=== PATIENT | female | born 1965 | race Caucasian/White ===

== ENCOUNTER 2018-02-13 19:22 | Inpatient (IN) ==
[2018-02-13] MEDS ORDERED: Sod Chloride 0.9% Inj 1,000 ML IV.SIG ONE (19:30)
--- NOTE | 2018-02-13 19:48 | ED ---
HPI General Chief complaint: Overdose Stated complaint: Poss Overdose Time Seen by Provider: 02/13/18 19:30 Source: family Limitations: altered mental status History of Present Illness HPI narrative: The patient is a 52 year old female who presents to the [facility] emergency department with a history of being brought in by her by private vehicle to triage with a reported history of taking 5-7 Seroquel approximately 30-45 minutes prior to arrival. The patient is drowsy on arrival and unable to provide any history as she quickly falls asleep in between questions. The Seroquel was reportedly 300 mg tablets. Unfortunately, as the patient arrives for evaluation the patient's also required an evaluation in the emergency department, therefore the patient's history is limited and will be reviewed in the electronic medical record. Related Data Home Medications Medication Instructions Recorded Confirmed clonazepam [Klonopin] 1 mg PO TID 11/06/17 02/13/18 quetiapine [Seroquel] 300 mg PO HS 11/06/17 02/13/18 venlafaxine [Effexor XR] 150 mg PO DAILY 11/06/17 02/13/18 Previous Rx's Medication Instructions Recorded baclofen 10 mg PO TID #21 tab 11/18/17 ibuprofen 800 mg PO Q6-8H PRN #30 tab 11/18/17 Allergies Allergy/AdvReac Type Severity Reaction Status Date / Time amoxicillin AdvReac Severe Nausea/Vomi Unverified 09/22/16 12:41 ting cefuroxime AdvReac Severe Nausea/Vomi Unverified 09/22/16 12:41 ting clavulanic acid AdvReac Severe Nausea/Vomi Unverified 09/22/16 12:41 ting Review of Systems ROS Unobtainable ROS Unobtainable: unobtainable due to mental status PMFSH Medical History Medical History Asthma (Acute) Bipolar 1 disorder (Acute) COPD (chronic obstructive pulmonary disease) (Acute) Sleep apnea (Acute) Social History Social History Substance History: No History of Abuse Second Hand Smoke Exposure: Yes Smoking Status: Current every day smoker Tobacco Type: Cigarettes How Often Do You Have a Drink Containing Alcohol: Unable to Obtain Exam Const General: other (The patient is snoring on my arrival to the room. The patient will briefly open her eyes when stimulated, however she quickly falls back asleep prior to answering questions.) [facility] Head: normocephalic and atraumatic Nose: no nasal discharge and no epistaxis Mouth: other (Tacky mucous membranes) Throat: posterior oropharynx normal and uvula midline Eyes Sclera: normal sclerae Pupils: PERRL and other (Pupils are dilated at 5 mm and reactive to light bilaterally) Neck Neck: no meningeal signs, trachea midline and no JVD Resp Effort & Inspection: no use of accessory muscles Auscultation: clear to auscultation bilaterally Cardio Rate: tachycardic (Sinus tachycardia in the 1 teens, no pulse deficits to the extremities on simultaneous auscultation and palpation of her radial artery.) Rhythm: regular rhythm Heart Sounds: no murmurs GI Inspection: non-distended Palpation: soft, no hepatosplenomegaly, no guarding, not rigid and nontender Auscultation: normal bowel sounds Skin General: dry skin (warm) Neuro General: other (Drowsy on examination. She is moving all extremities equally with 5/5 strength. Patient is otherwise uncooperative with formal neurologic testing as she quickly falls asleep when she is not being stimulated) Motor: no movement abnormalities noted Extrem General: normal to inspection (2+ pulses in all 4 extremities.), no calf tenderness, no clubbing, no cyanosis and no edema Procedures Intubation Time Out Performed: Yes Sedative: etomidate Mg Given: 20 Paralytic: succinylcholine Mg Given: 100 Laryngoscope: Shemar Assist Device Used: Bougie Tube Placement Confirmation: visualized tube passing through cords, equal breath sounds bilaterally, no breath sounds over epigastrium and confirmation by capnometry Intubation Complications: difficult intubation Additional Comments: Initially a Shemar blade was used for laryngoscopy. There was a poor view with only the patient's epiglottis able to be visualized in spite of repositioning the patient. After this, further visualization was attempted with video laryngoscopy. The view continued to be poor. A bougie was used for placement of the endotracheal tube, however the endotracheal tube passed into the esophagus. This was quickly removed. The patient's O2 saturations were maintained throughout the process of attempted intubation and the patient was again bagged up to an O2 saturation of 98%. A third attempt was made with the Shemar blade and the patient was able to be intubated with a 7-1/2 endotracheal tube instead of an 8. Intubation was confirmed with capnography and auscultation. Course Initial Documented Vital Signs Temperature 98.7 F 02/13/18 19:33 Pulse Rate 108 H 02/13/18 19:33 Respiratory Rate 15 02/13/18 19:33 Blood Pressure 127/70 02/13/18 19:33 Pulse Oximetry 94 L 02/13/18 19:33 Last Documented Vital Signs Temperature 98.7 F 02/13/18 19:33 Pulse Rate 68 02/14/18 04:00 Respiratory Rate 16 02/14/18 04:00 Blood Pressure 126/77 02/14/18 04:00 Pulse Oximetry 99 02/14/18 04:00 Critical Care Time Critical Care Time: Yes Total Critical Care Time: 40 Attestation: Aggregate critical care time was 40 minutes. Time to perform other separately billable procedures was not included in the critical care time. My time did not include minutes spent treating any other patients simultaneously or on activities that did not directly contribute to the patient's treatment. The services I provided to this patient were to treat and/or prevent clinically significant deterioration that could result in: respiratory failure, versus cardiac dysrhythmia, versus hypoxic brain injury I provided critical care services requiring my management, as noted below: Chart data review, documentation time, medication orders and management, vital sign assessments/reviewing monitor data, ordering and reviewing lab tests, ordering and interpreting/reviewing x-rays and diagnostic studies, care of the patient and discussion of the patient with the admitting physicians. Medical Decision Making MDM Narrative Medical decision making narrative: During the course of the patient's emergency department visit, the patient's history, examination, and differential diagnosis were reviewed with the patient. The patient was placed on a school lunch monitor with oximetry and frequent blood pressure monitoring. The patient had IV access obtained and blood work sent for analysis. A diagnostic evaluation was started regarding this patient's reported overdose of Seroquel. Poison control will be contacted. The patient was initially provided normal saline 1 L IV fluid bolus. The patient came back from CT, the patient was noted to be more somnolent, O2 saturation would drop intermittently on the nasal cannula O2 as the patient is mouth breathing. A nasopharyngeal airway was placed and an ABG was done in preparation for intubation. The patient's diagnostic studies are remarkable for a CBC that is within normal limits, PT PTT within normal limits, chemistry is remarkable for sodium of 135, GFR of 68, glucose 127, AST 74, ALT 60, troponin I is less than 0.02, ammonia level is less than 10, lipase 152. An ABG revealed an O2 saturation of 89%, pH 7.29, PCO2 53, PO2 116 on 8 L nasal cannula O2, carboxyhemoglobin is 8.8, bicarb is 25. Urinalysis shows no acute abnormality. Urine drug screen is positive for benzodiazepines, salicylate is 2.2, acetaminophen less than 2, alcohol level less than 3. The patient was intubated and a post intubation chest x-ray revealed the endotracheal tube and NG tube in place, lungs are clear, prominent cardia cardiomediastinal silhouette which may be related to low lung volumes. CT scan of the brain shows aneurysm coils of the left side of the [place], resulting streak artifact, no acute intracranial abnormality. The patient's case including history, pertinent physical examination findings, and laboratory studies were discussed with Dr. Strauss, the ict sales assistant. It was agreed that the patient would be admitted to the ict sales assistant's service. Medical Screen Exam Complete: Yes Emergency Medical Condition: Yes Differential Diagnosis Differential Diagnosis: Intentional versus unintentional overdose, versus hepatic encephalopathy, versus intracranial abnormality Medical Records Medical records reviewed: Yes I reviewed the patient's medical records. Lab Data Lab results reviewed: Yes I reviewed the patient's lab results. Result diagrams: 02/13/18 19:50 02/13/18 19:50 POC Results POC Urine Results Negative Lab Results 02/13/18 02/13/18 02/13/18 Range/Units 19:50 19:50 19:50 WBC 9.0 (4.0-11.0) th/mm3 RBC 4.58 (4.00-5.30) mil/mm3 Hgb 13.8 (11.6-15.3) gm/dL Hct 41.4 (35.0-46.0) % MCV 90.4 (80.0-100.0) fL MCH 30.3 (27.0-34.0) pg MCHC 33.5 (32.0-36.0) % RDW 14.9 (11.6-17.2) % Plt Count 177 (150-450) th/mm3 MPV 9.0 (7.0-11.0) fL Neut % (Auto) 66.4 (16.0-70.0) % Lymph % (Auto) 27.1 (9.0-44.0) % [place] % (Auto) 4.1 (0.0-8.0) % Eos % (Auto) 2.0 (0.0-4.0) % Baso % (Auto) 0.4 (0.0-2.0) % Neut # (Auto) 6.0 (1.8-7.7) th/mm3 Lymph # (Auto) 2.5 (1.0-4.8) th/mm3 [place] # (Auto) 0.4 (0.0-0.9) th/mm3 Eos # (Auto) 0.2 (0.0-0.4) th/mm3 Baso # (Auto) 0.0 (0.0-0.2) th/mm3 WBC Differential . Differential Comment Auto diff final PT 10.5 (9.8-11.6) sec INR 1.0 Ratio APTT 28.1 (23.4-31.7) sec Puncture Site Patient Temperature O2 Saturation (90-100) % ABG pH (7.380-7.420) ABG pCO2 (38-42) mmHg ABG pO2 (61-120) mmHg ABG HCO3 (22-26) mmol/L ABG O2 Content (12.0-20.0) Vol % ABG Base Excess (-2-2) mmol/L ABG Methemoglobin (0-2) % Hector Test Hemoglobin (12.0-16.0) G/DL Carboxyhemoglobin (0-4) % O2 Delivery Device Liter Flow L/M Vent Setting Inspired O2 % Critical Value Sodium 135 L (136-145) meq/L Potassium 3.9 (3.5-5.1) meq/L Chloride 103 (98-107) meq/L Carbon Dioxide 24.2 (21.0-32.0) meq/L Anion Gap 8 (5-15) meq/L BUN 8 (7-18) mg/dL Creatinine 0.88 (0.50-1.00) mg/dL Estimated GFR 68 L (>89) mL/min Random Glucose 127 H (74-106) mg/dL Osmolality 285 (275-295) mosm/kg Calcium 8.8 (8.5-10.1) mg/dL Magnesium 2.1 (1.5-2.5) mg/dL Total Bilirubin 0.4 (0.2-1.0) mg/dL AST 74 H (15-37) U/L ALT 60 H (10-53) U/L Alkaline Phosphatase 111 (45-117) U/L Ammonia (11-32) mcmol/L Troponin I Less than 0.02 L (0.02-0.05) ng/mL Total Protein 8.0 (6.4-8.2) g/dL Albumin 3.8 (3.4-5.0) g/dL Lipase 152 (73-393) U/L Urine Color (Yellw/Straw) Urine Clarity (Clear) Urine pH (5.0-8.5) Ur Specific [place] (1.002-1.035) Urine Protein (Neg-Trace) mg/dL Urine Glucose (UA) (Negative) mg/dL Urine Ketones (Negative) mg/dL Urine Occult Blood (Negative) Urine Nitrate (Negative) Urine Bilirubin (Negative) Urine Urobilinogen (Less than 2) mg/dL Ur Leukocyte Esterase (Negative) Urine RBC (0-3) /hpf Urine WBC (0-5) /hpf Urine Bacteria (None) /hpf Hyaline Casts (0-3) /lpf Urine Mucus (Occasional) /lpf Micro UA Comment Ur Microscopic Review Urine Culture Comments Urine Osmolality (300-1300) mosm/kg Nasal Screen MRSA (PCR) (Negative) Salicylates (2.8-20.0) mg/dL Urine Opiates Screen (Neg) Acetaminophen Less than 2.0 L (10.0-30.0) mcg/mL Ur Barbiturates Screen (Neg) Ur Amphetamines Screen (Neg) U Benzodiazepines Scrn (Neg) Urine Cocaine Screen (Neg) U Cannabinoids Screen (Neg) Serum Alcohol Less than 3 (0-5) mg/dL 02/13/18 02/13/18 02/13/18 Range/Units 19:50 19:50 20:05 WBC (4.0-11.0) th/mm3 RBC (4.00-5.30) mil/mm3 Hgb (11.6-15.3) gm/dL Hct (35.0-46.0) % MCV (80.0-100.0) fL MCH (27.0-34.0) pg MCHC (32.0-36.0) % RDW (11.6-17.2) % Plt Count (150-450) th/mm3 MPV (7.0-11.0) fL Neut % (Auto) (16.0-70.0) % Lymph % (Auto) (9.0-44.0) % [place] % (Auto) (0.0-8.0) % Eos % (Auto) (0.0-4.0) % Baso % (Auto) (0.0-2.0) % Neut # (Auto) (1.8-7.7) th/mm3 Lymph # (Auto) (1.0-4.8) th/mm3 [place] # (Auto) (0.0-0.9) th/mm3 Eos # (Auto) (0.0-0.4) th/mm3 Baso # (Auto) (0.0-0.2) th/mm3 WBC Differential Differential Comment PT (9.8-11.6) sec INR Ratio APTT (23.4-31.7) sec Puncture Site Right radial Patient Temperature 98.6 O2 Saturation 89 L* (90-100) % ABG pH 7.29 L* (7.380-7.420) ABG pCO2 53 H* (38-42) mmHg ABG pO2 116 (61-120) mmHg ABG HCO3 25 (22-26) mmol/L ABG O2 Content 16.7 (12.0-20.0) Vol % ABG Base Excess -1.1 (-2-2) mmol/L ABG Methemoglobin 0.9 (0-2) % Hector Test Present Hemoglobin 13.2 (12.0-16.0) G/DL Carboxyhemoglobin 8.8 H* (0-4) % O2 Delivery Device Nasal cannula Liter Flow 8.00 L/M Vent Setting Inspired O2 % Critical Value Yes Sodium (136-145) meq/L Potassium (3.5-5.1) meq/L Chloride (98-107) meq/L Carbon Dioxide (21.0-32.0) meq/L Anion Gap (5-15) meq/L BUN (7-18) mg/dL Creatinine (0.50-1.00) mg/dL Estimated GFR (>89) mL/min Random Glucose (74-106) mg/dL Osmolality (275-295) mosm/kg Calcium (8.5-10.1) mg/dL Magnesium (1.5-2.5) mg/dL Total Bilirubin (0.2-1.0) mg/dL AST (15-37) U/L ALT (10-53) U/L Alkaline Phosphatase (45-117) U/L Ammonia Less than 10 L (11-32) mcmol/L Troponin I (0.02-0.05) ng/mL Total Protein (6.4-8.2) g/dL Albumin (3.4-5.0) g/dL Lipase (73-393) U/L Urine Color (Yellw/Straw) Urine Clarity (Clear) Urine pH (5.0-8.5) Ur Specific [place] (1.002-1.035) Urine Protein (Neg-Trace) mg/dL Urine Glucose (UA) (Negative) mg/dL Urine Ketones (Negative) mg/dL Urine Occult Blood (Negative) Urine Nitrate (Negative) Urine Bilirubin (Negative) Urine Urobilinogen (Less than 2) mg/dL Ur Leukocyte Esterase (Negative) Urine RBC (0-3) /hpf Urine WBC (0-5) /hpf Urine Bacteria (None) /hpf Hyaline Casts (0-3) /lpf Urine Mucus (Occasional) /lpf Micro UA Comment Ur Microscopic Review Urine Culture Comments Urine Osmolality (300-1300) mosm/kg Nasal Screen MRSA (PCR) (Negative) Salicylates 2.2 L (2.8-20.0) mg/dL Urine Opiates Screen (Neg) Acetaminophen (10.0-30.0) mcg/mL Ur Barbiturates Screen (Neg) Ur Amphetamines Screen (Neg) U Benzodiazepines Scrn (Neg) Urine Cocaine Screen (Neg) U Cannabinoids Screen (Neg) Serum Alcohol (0-5) mg/dL 02/13/18 02/13/18 02/13/18 Range/Units 22:00 22:00 22:00 WBC (4.0-11.0) th/mm3 RBC (4.00-5.30) mil/mm3 Hgb (11.6-15.3) gm/dL Hct (35.0-46.0) % MCV (80.0-100.0) fL MCH (27.0-34.0) pg MCHC (32.0-36.0) % RDW (11.6-17.2) % Plt Count (150-450) th/mm3 MPV (7.0-11.0) fL Neut % (Auto) (16.0-70.0) % Lymph % (Auto) (9.0-44.0) % [place] % (Auto) (0.0-8.0) % Eos % (Auto) (0.0-4.0) % Baso % (Auto) (0.0-2.0) % Neut # (Auto) (1.8-7.7) th/mm3 Lymph # (Auto) (1.0-4.8) th/mm3 [place] # (Auto) (0.0-0.9) th/mm3 Eos # (Auto) (0.0-0.4) th/mm3 Baso # (Auto) (0.0-0.2) th/mm3 WBC Differential Differential Comment PT (9.8-11.6) sec INR Ratio APTT (23.4-31.7) sec Puncture Site Patient Temperature O2 Saturation (90-100) % ABG pH (7.380-7.420) ABG pCO2 (38-42) mmHg ABG pO2 (61-120) mmHg ABG HCO3 (22-26) mmol/L ABG O2 Content (12.0-20.0) Vol % ABG Base Excess (-2-2) mmol/L ABG Methemoglobin (0-2) % Hector Test Hemoglobin (12.0-16.0) G/DL Carboxyhemoglobin (0-4) % O2 Delivery Device Liter Flow L/M Vent Setting Inspired O2 % Critical Value Sodium (136-145) meq/L Potassium (3.5-5.1) meq/L Chloride (98-107) meq/L Carbon Dioxide (21.0-32.0) meq/L Anion Gap (5-15) meq/L BUN (7-18) mg/dL Creatinine (0.50-1.00) mg/dL Estimated GFR (>89) mL/min Random Glucose (74-106) mg/dL Osmolality (275-295) mosm/kg Calcium (8.5-10.1) mg/dL Magnesium (1.5-2.5) mg/dL Total Bilirubin (0.2-1.0) mg/dL AST (15-37) U/L ALT (10-53) U/L Alkaline Phosphatase (45-117) U/L Ammonia (11-32) mcmol/L Troponin I (0.02-0.05) ng/mL Total Protein (6.4-8.2) g/dL Albumin (3.4-5.0) g/dL Lipase (73-393) U/L Urine Color Yellow (Yellw/Straw) Urine Clarity Clear (Clear) Urine pH 6.0 (5.0-8.5) Ur Specific [place] 1.010 (1.002-1.035) Urine Protein Negative (Neg-Trace) mg/dL Urine Glucose (UA) Negative (Negative) mg/dL Urine Ketones Negative (Negative) mg/dL Urine Occult Blood Negative (Negative) Urine Nitrate Negative (Negative) Urine Bilirubin Negative (Negative) Urine Urobilinogen Less than 2 (Less than 2) mg/dL Ur Leukocyte Esterase Negative (Negative) Urine RBC 1 (0-3) /hpf Urine WBC 1 (0-5) /hpf Urine Bacteria Rare H (None) /hpf Hyaline Casts 3 (0-3) /lpf Urine Mucus Few H (Occasional) /lpf Micro UA Comment Cath-culture ind Ur Microscopic Review Not Reportable Urine Culture Comments Cath-cult indicated Urine Osmolality 263 L (300-1300) mosm/kg Nasal Screen MRSA (PCR) (Negative) Salicylates (2.8-20.0) mg/dL Urine Opiates Screen Neg (Neg) Acetaminophen (10.0-30.0) mcg/mL Ur Barbiturates Screen Neg (Neg) Ur Amphetamines Screen Neg (Neg) U Benzodiazepines Scrn Pos H (Neg) Urine Cocaine Screen Neg (Neg) U Cannabinoids Screen Neg (Neg) Serum Alcohol (0-5) mg/dL 02/13/18 02/13/18 Range/Units 22:00 23:00 WBC (4.0-11.0) th/mm3 RBC (4.00-5.30) mil/mm3 Hgb (11.6-15.3) gm/dL Hct (35.0-46.0) % MCV (80.0-100.0) fL MCH (27.0-34.0) pg MCHC (32.0-36.0) % RDW (11.6-17.2) % Plt Count (150-450) th/mm3 MPV (7.0-11.0) fL Neut % (Auto) (16.0-70.0) % Lymph % (Auto) (9.0-44.0) % [place] % (Auto) (0.0-8.0) % Eos % (Auto) (0.0-4.0) % Baso % (Auto) (0.0-2.0) % Neut # (Auto) (1.8-7.7) th/mm3 Lymph # (Auto) (1.0-4.8) th/mm3 [place] # (Auto) (0.0-0.9) th/mm3 Eos # (Auto) (0.0-0.4) th/mm3 Baso # (Auto) (0.0-0.2) th/mm3 WBC Differential Differential Comment PT (9.8-11.6) sec INR Ratio APTT (23.4-31.7) sec Puncture Site Left radial Patient Temperature 98.6 O2 Saturation 92 (90-100) % ABG pH 7.49 H (7.380-7.420) ABG pCO2 28 L (38-42) mmHg ABG pO2 130 H (61-120) mmHg ABG HCO3 21 L (22-26) mmol/L ABG O2 Content 16.6 (12.0-20.0) Vol % ABG Base Excess -1.5 (-2-2) mmol/L ABG Methemoglobin 0.7 (0-2) % Hector Test Present Hemoglobin 12.6 (12.0-16.0) G/DL Carboxyhemoglobin 6.6 H* (0-4) % O2 Delivery Device Ventilator Liter Flow L/M Vent Setting Inspired O2 40 % Critical Value Yes Sodium (136-145) meq/L Potassium (3.5-5.1) meq/L Chloride (98-107) meq/L Carbon Dioxide (21.0-32.0) meq/L Anion Gap (5-15) meq/L BUN (7-18) mg/dL Creatinine (0.50-1.00) mg/dL Estimated GFR (>89) mL/min Random Glucose (74-106) mg/dL Osmolality (275-295) mosm/kg Calcium (8.5-10.1) mg/dL Magnesium (1.5-2.5) mg/dL Total Bilirubin (0.2-1.0) mg/dL AST (15-37) U/L ALT (10-53) U/L Alkaline Phosphatase (45-117) U/L Ammonia (11-32) mcmol/L Troponin I (0.02-0.05) ng/mL Total Protein (6.4-8.2) g/dL Albumin (3.4-5.0) g/dL Lipase (73-393) U/L Urine Color (Yellw/Straw) Urine Clarity (Clear) Urine pH (5.0-8.5) Ur Specific [place] (1.002-1.035) Urine Protein (Neg-Trace) mg/dL Urine Glucose (UA) (Negative) mg/dL Urine Ketones (Negative) mg/dL Urine Occult Blood (Negative) Urine Nitrate (Negative) Urine Bilirubin (Negative) Urine Urobilinogen (Less than 2) mg/dL Ur Leukocyte Esterase (Negative) Urine RBC (0-3) /hpf Urine WBC (0-5) /hpf Urine Bacteria (None) /hpf Hyaline Casts (0-3) /lpf Urine Mucus (Occasional) /lpf Micro UA Comment Ur Microscopic Review Urine Culture Comments Urine Osmolality (300-1300) mosm/kg Nasal Screen MRSA (PCR) Not detected (Negative) Salicylates (2.8-20.0) mg/dL Urine Opiates Screen (Neg) Acetaminophen (10.0-30.0) mcg/mL Ur Barbiturates Screen (Neg) Ur Amphetamines Screen (Neg) U Benzodiazepines Scrn (Neg) Urine Cocaine Screen (Neg) U Cannabinoids Screen (Neg) Serum Alcohol (0-5) mg/dL Imaging Data Radiologist's impression: Chest X-Ray 02/13/18 19:30 CONCLUSION: Low lung volumes. Relative widening of the mediastinal silhouette that may be somewhat due to the decreased lung volumes. No other acute cardiopulmonary disease identified. Head CT 02/13/18 19:31 CONCLUSION: 1. Aneurysm coils of the left side of the [place]. Resulting streak artifact. 2. No acute intracranial findings identified. . Chest X-Ray 02/13/18 20:20 CONCLUSION: 1. Endotracheal tube and nasogastric tube in place. 2. Lungs clear. 3. Prominent cardiomediastinal silhouette may be related to low lung volumes. ECG Data Attestation: I personally reviewed and interpreted this ECG as follows: Interpretation: The patient had an EKG done on arrival. The patient's EKG reveals a sinus tachycardia rate of 114, QRS duration is 93 ms, QTC [address] segment elevation, T waves are inverted in V1, V2. Discharge Plan Discharge Disposition Patient Disposition: ED Admit(ED Internal Use Only) Discharge Order Discharge Orders: ED Use Only Admit Order (Routine); Ordered 02/13/18 Ordered By: Sydney Hanna Discharge Details Diagnosis: Drug overdose, Respiratory failure Physicians Team ED Provider: Sydney Hanna Primary Care Provider: UNKNOWN, Attending Provider: Trey Strauss Status ED Status: Left Department Discharge Information Discharge Date/Time: 02/13/18 23:00
[2018-02-13 19:58] LABS: Baso % (Auto) 0.4 % (0.0-2.0); Eos # (Auto) 0.2 th/mm3 (0.0-0.4); Hematocrit 41.4 % (35.0-46.0); Hemoglobin 13.8 gm/dL (11.6-15.3); Lymph # (Auto) 2.5 th/mm3 (1.0-4.8); Lymph % (Auto) 27.1 % (9.0-44.0); Mean Corpuscular HGB Conc 33.5 % (32.0-36.0); Mean Corpuscular Hemoglobin 30.3 pg (27.0-34.0); Mean Corpuscular Volume 90.4 fL (80.0-100.0); Mono # (Auto) 0.4 th/mm3 (0.0-0.9); Mono % (Auto) 4.1 % (0.0-8.0); Neut % (Auto) 66.4 % (16.0-70.0); Platelet Count 177 th/mm3 (150-450); Red Blood Count 4.58 mil/mm3 (4.00-5.30); Red Cell Distribution Width 14.9 % (11.6-17.2)
--- NOTE | 2018-02-13 20:09 | XR ---
EXAM DATE: 02/13/2018 8:05 PM EST AGE/SEX: 52 years / Female INDICATIONS: Possible Overdose CLINICAL DATA: This is the patient's initial encounter. Patient reports that signs and symptoms have been present for 1 day and indicates a pain score of Nonresponsive. MEDICAL/SURGICAL HISTORY: Non-responsive. Non-responsive. COMPARISON: [facility] [place], CHEST 2V AP&LAT, 11/06/2017. . FINDINGS: Single AP view the chest. Lung volumes are low. There is new widening of the mediastinal silhouette w hen compared to the prior chest x-ray of October 2017.Lungs are clear. No evidence of pleural effus ion or pneumothorax. CONCLUSION: Low lung volumes. Relative widening of the mediastinal silhouette that may be somewhat due to the dec reased lung volumes. No other acute cardiopulmonary disease identified. Electronically signed by: Mike Purcell MD Board Certified Radiologist 02/13/2018 8:08 PM EST
[2018-02-13] MEDS ORDERED: Etomidate Inj 20 MG/10 ML Ampul IV.PUSH ONE (20:12)
[2018-02-13 20:15] LABS: Activated Partial Thrombo Time 28.1 sec (23.4-31.7); Prothrombin Time 10.5 sec (9.8-11.6)
[2018-02-13 20:18] LABS: Albumin 3.8 g/dL (3.4-5.0); Anion Gap 8 meq/L (5-15); Aspartate Aminotransferase 74 U/L (15-37); Blood Urea Nitrogen 8 mg/dL (7-18); Calcium 8.8 mg/dL (8.5-10.1); Carbon Dioxide 24.2 meq/L (21.0-32.0); Chloride 103 meq/L (98-107); Glomerular Filtration Rate 68 mL/min (>89); Glucose,Random 127 mg/dL (74-106); Lipase 152 U/L (73-393); Magnesium 2.1 mg/dL (1.5-2.5); Potassium 3.9 meq/L (3.5-5.1); Sodium 135 meq/L (136-145)
[2018-02-13 20:19] LABS: Alanine Aminotransferase 60 U/L (10-53)
[2018-02-13] MEDS ORDERED: Succinylcholine Inj 100 MG/5 ML Syringe IV.PUSH ONE (20:19)
[2018-02-13] MEDS ORDERED: Etomidate Inj 40 MG/20 ML Vial IV.PUSH ONE (20:19)
--- NOTE | 2018-02-13 20:20 | CT ---
EXAM DATE: 02/13/2018 8:14 PM EST AGE/SEX: 52 years / Female INDICATIONS: Altered mental status. Possible overdose. CLINICAL DATA: This is the patient's initial encounter. Patient reports that signs and symptoms have been present for 1 day and indicates a pain score of Nonresponsive. MEDICAL/SURGICAL HISTORY: Aneurysm, intracranial. Asthma. Chronic obstructive pulmonary disease. . Aneurysm clipping clipping RADIATION DOSE: 66.34 CTDI (mGy) COMPARISON: No prior exams available for comparison. TECHNIQUE: CT of the head without contrast. Using automated exposure control and adjustment of the mA and/or kV according to patient size, radiation dose was kept as low as reasonably achievable to ob tain optimal diagnostic quality images. DICOM format image data is available electronically for revi ew and comparison. FINDINGS: Cerebrum: Metallic aneurysm coils are noted in the region of the anterior [place] on the le ft. Resulting prominent artifact. The ventricles are normal for age. No evidence of midline shift, m ass lesion, hemorrhage or acute infarction. No extraaxial fluid collections are seen. Posterior Fossa: The cerebellum and brainstem are intact. The 4th ventricle is midline. The cerebe llopontine angle is unremarkable. Extracranial: The visualized portion of the orbits is intact. Skull: The calvaria is intact. No evidence of skull fracture. CONCLUSION: 1. Aneurysm coils of the left side of the [place]. Resulting streak artifact. 2. No acute intracranial findings identified. . Electronically signed by: Mike Purcell MD Board Certified Radiologist 02/13/2018 8:19 PM EST
[2018-02-13 20:22] LABS: Alkaline Phosphatase 111 U/L (45-117)
[2018-02-13] MEDS: Propofol 1000 mg/100 ml Inj 1,000 MG/100 ML BOTTLE IV.CONT PRN (20:51)
--- NOTE | 2018-02-13 21:04 | P.HPCC ---
History of Present Illness Service: Critical care Primary Care Physician: UNKNOWN Chief Complaint: Altered mental state, drug overdose History of Present Illness: The patient is a 52 year old female with past medical history significant for tobacco abuse, bronchial asthma, COPD, morbid obesity, obstructive sleep apnea, bipolar disorder who presented to the [facility] emergency department with reported history of taking 5-7 tablets of Seroquel 300 mg, approximately 45 minutes prior to arrival. The patient was drowsy on arrival and unable to provide any history, but was waking up to questions. 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 Her condition deteriorated in the ED and she was no longer protecting airway. Patient was intubated and placed on mechanical ventilation by Dr. Hanna in the ED. Apparently the airway was anterior and intubation was difficult. A urine drug screen is pending at this time. I evaluate the patient in the emergency department. She received etomidate and succinylcholine for intubation and sedated with propofol at this time. Respiratory therapist informed me that with volume control ventilation tidal volume was inadequate, and there was expiratory wheezing. On my exam patient's tidal volumes were 150-200 on PRVC/AC with target tidal volume 500. Vent mode changed to pressure control with inspiratory pressure 30, a volume of 450-500 was obtained. It appears that patient has acute COPD/asthma exacerbation. I have ordered stat breathing treatments then scheduled DuoNeb every 4hours and as needed. Also start IV Solu-Medrol 60 mg IV every 8 hours, sputum cultures will be sent. Postintubation chest x-ray is pending at this time - Diagnosis (1) Acute encephalopathy (2) Acute respiratory failure (3) Drug overdose (4) Acute exacerbation of COPD with asthma (5) Difficult airway for intubation (6) Hyponatremia (7) Transaminitis (8) History of COPD (9) History of asthma (10) Bipolar disorder (11) Morbid obesity (12) Tobacco abuse Review of Systems unobtainable due to endotracheal tube, unobtainable due to mental status PMFSH - History History Provided By: Family Member - Medical History Medical History: Medical History (Last Reviewed 02/13/18 @ 21:04 by Trey Strauss MD) Asthma Bipolar 1 disorder COPD (chronic obstructive pulmonary disease) Sleep apnea - Tobacco History Second Hand Smoke Exposure: Yes Smoking Status: Unknown if ever smoked Tobacco Type: Cigarettes - Alcohol History How Often Do You Have a Drink Containing Alcohol: Unable to Obtain - Substance Use History Substance History: No History of Abuse - Immunization History Tetanus Immunization: Unable to Assess Medications and Allergies Active Medications: Active Medications Albuterol (Duoneb Neb (Prn)) 1 ampul NEB Q4HR NEB PRN PRN Reason: SHORTNESS OF BREATH Albuterol (Duoneb Neb (Mandie)) 1 ampul NEB Q4HR NEB MANDIE Chlorhexidine Gluconate (Chlorhexidine 2% Cloth) 3 pack TOPICAL DAILY@0400 MANDIE Stop: 02/19/18 03:59 Chlorhexidine Gluconate (Chlorhexidine 2% Cloth) 3 pack TOPICAL DAILY@0400 PRN PRN Reason: Extra cloth needed Stop: 02/19/18 03:59 Chlorhexidine Gluconate (Peridex 0.12% Oral Kit) 15 ml OROPHARYNG BID@0800, 2000 MANDIE Enoxaparin Sodium (Lovenox Inj) 40 mg SQ Q24H MANDIE Famotidine (Pepcid Pf Inj) 20 mg IV.PUSH Q12HR MANDIE Propofol (Diprivan 1000 Mg/100 Ml Inj) 1,000 mg in 100 mls @ 2.722 mls/hr IV.CONT TITRATE PRN; Protocol PRN Reason: Per Protocol Last Admin: 02/13/18 20:51 Dose: 15 mcg/kg/min, 8.17 mls/hr Sodium Chloride (Ns Inj) 1,000 mls @ 75 mls/hr IV.CONT .[id number] [facility] Methylprednisolone Sodium Succinate (Solumedrol Inj) 60 mg IV.PUSH Q12HR [facility] Miscellaneous Medication () 1 each OROPHARYNG 0000,0400,1200,1600 MANDIE Sodium Chloride (Ns Flush) 2 ml IV.FLUSH PRN PRN PRN Reason: FLUSH AFTER USING IV ACCESS Sodium Chloride (Ns Flush) 2 ml IV.FLUSH PRN PRN PRN Reason: FLUSH AFTER USING IV ACCESS Allergies Allergy/AdvReac Type Severity Reaction Status Date / Time amoxicillin AdvReac Severe Nausea/Vomi Unverified 09/22/16 12:41 ting cefuroxime AdvReac Severe Nausea/Vomi Unverified 09/22/16 12:41 ting clavulanic acid AdvReac Severe Nausea/Vomi Unverified 09/22/16 12:41 ting Home Medications Medication Instructions Recorded Confirmed Type clonazepam [Klonopin] 1 mg PO TID 11/06/17 02/13/18 History quetiapine [Seroquel] 300 mg PO HS 11/06/17 02/13/18 History venlafaxine [Effexor XR] 150 mg PO DAILY 11/06/17 02/13/18 History Results - Labs CBC & Chem 7: 02/13/18 19:50 02/13/18 19:50 Labs: Short CBC 02/13/18 Range/Units 19:50 WBC 9.0 (4.0-11.0) th/mm3 Hgb 13.8 (11.6-15.3) gm/dL Hct 41.4 (35.0-46.0) % Plt Count 177 (150-450) th/mm3 BMP 02/13/18 19:50 Sodium 135 L Potassium 3.9 Chloride 103 Carbon Dioxide 24.2 BUN 8 Creatinine 0.88 Calcium 8.8 Cardiac Enzymes 02/13/18 Range/Units 19:50 Troponin I Less than 0.02 L (0.02-0.05) ng/mL Liver Function 02/13/18 Range/Units 19:50 Total Bilirubin 0.4 (0.2-1.0) mg/dL AST 74 H (15-37) U/L ALT 60 H (10-53) U/L Alkaline Phosphatase 111 (45-117) U/L Albumin 3.8 (3.4-5.0) g/dL - Imaging Impressions Chest X-Ray 02/13/18 19:30 CONCLUSION: Low lung volumes. Relative widening of the mediastinal silhouette that may be somewhat due to the decreased lung volumes. No other acute cardiopulmonary disease identified. Head CT 02/13/18 19:31 CONCLUSION: 1. Aneurysm coils of the left side of the [place] of [place]. Resulting streak artifact. 2. No acute intracranial findings identified. . Exam Vital signs: Vital Signs 02/13/18 19:33 Temperature 98.7 F Pulse Rate 108 H Respiratory Rate 15 Blood Pressure 127/70 Pulse Oximetry 94 L Intake & Output 02/13/18 02/13/18 02/14/18 06:59 18:59 06:59 Weight 90.718 kg Narrative: General: Morbidly obese female who is intubated sedated with propofol , under the influence of neuromuscular blockade and etomidate HEENT: Atraumatic normocephalic, oral cavity is moist, orotracheally intubated. Pupils are 5 mm sluggishly reactive Neck: no meningeal signs, trachea midline and no obvious JVD CVS: Sinus tachycardia. S1-S2 normal no murmurs RESP: Currently mechanically ventilated however cannot achieve target her volume. There is bilateral expiratory wheezing and diminished breath sounds. Improved air entry on pressure control mode GI: Abdomen soft obese no organomegaly Skin: Dry warm well perfused Neuro: Neuro exam is limited due to propofol and recent neuromuscular blockade. Pupils 5 mm sluggish. Very slight withdrawal to pain as the succinylcholine is starting to wear off no spontaneous eye opening Septic Shock Reassessment Septic shock perfusion: reassessment completed Caprini VTE Risk Assessment Caprini VTE Risk Assessment: Moderate/High Risk (score >= 2) Caprini Risk Assessment Model: Point Value = 1 Point Value = 2 Point Value = 3 Point Value = 5 Age 41-60 Minor surgery BMI > 25 kg/m2 Swollen legs Varicose veins or History of unexplained or recurrent spontaneous Oral contraceptives or hormone replacement Sepsis (< 1 month) Serious lung disease, including pneumonia (< 1 month) Abnormal pulmonary function Acute myocardial infarction Congestive heart failure (< 1 month) History of inflammatory bowel disease Medical patient at bed rest Age 61-74 Arthroscopic surgery Major open surgery (> 45 min) Laparoscopic surgery (> 45 min) Malignancy Confined to bed (> 72 hours) Immobilizing plaster cast Central venous access Age >= 75 History of VTE Family history of VTE Factor V Leiden Prothrombin [id number] Lupus anticoagulant Anticardiolipin antibodies Elevated serum homocysteine Heparin-induced thrombocytopenia Other congenital or acquired thrombophilia Stroke (< 1 month) Elective arthroplasty Hip, pelvis, or leg fracture Acute spinal cord injury (< 1 month) Prophylaxis Regimen: Total Risk Factor Score Risk Level Prophylaxis Regimen 0-1 Low Early ambulation 2 Moderate Order ONE of the following: *Sequential Compression Device (SCD) *Heparin 5000 units SQ BID 3-4 Higher Order ONE of the following medications: *Heparin 5000 units SQ TID *Enoxaparin/Lovenox 40 mg SQ daily (WT < 150 kg, CrCl > 30 mL/min) *Enoxaparin/Lovenox 30 mg SQ daily (WT < 150 kg, CrCl > 10-29 mL/min) *Enoxaparin/Lovenox 30 mg SQ BID (WT < 150 kg, CrCl > 30 mL/min) AND/OR *Sequential Compression Device (SCD) 5 or more Highest Order ONE of the following medications: *Heparin 5000 units SQ TID (Preferred with Epidurals) *Enoxaparin/Lovenox 40 mg SQ daily (WT < 150 kg, CrCl > 30 mL/min) *Enoxaparin/Lovenox 30 mg SQ daily (WT < 150 kg, CrCl > 10-29 mL/min) *Enoxaparin/Lovenox 30 mg SQ BID (WT < 150 kg, CrCl > 30 mL/min) AND *Sequential Compression Device (SCD) Assessment and Plan - Problem List (1) Acute encephalopathy Code(s): G93.40 - Encephalopathy, unspecified Status: Acute (2) Acute respiratory failure Code(s): J96.00 - Acute respiratory failure, unspecified whether with hypoxia or hypercapnia Status: Acute (3) Drug overdose Code(s): T50.901A - Poisoning by unspecified drugs, medicaments and biological substances, accidental (unintentional), initial encounter Status: Acute (4) Acute exacerbation of COPD with asthma Code(s): J44.1 - Chronic obstructive pulmonary disease with (acute) exacerbation ; J45.901 - Unspecified asthma with (acute) exacerbation Status: Acute (5) Difficult airway for intubation Code(s): T88.4XXA - Failed or difficult intubation, initial encounter Status: Acute (6) Hyponatremia Code(s): E87.1 - Hypo-osmolality and hyponatremia Status: Acute (7) Transaminitis Code(s): R74.0 - Nonspecific elevation of levels of transaminase and lactic acid dehydrogenase [LDH] Status: Acute (8) History of COPD Code(s): Z87.09 - Personal history of other diseases of the respiratory system Status: Chronic (9) History of asthma Code(s): Z87.09 - Personal history of other diseases of the respiratory system Status: Chronic (10) Bipolar disorder Code(s): F31.9 - Bipolar disorder, unspecified Status: Chronic (11) Morbid obesity Code(s): E66.01 - Morbid (severe) obesity due to excess calories Status: Chronic (12) Tobacco abuse Code(s): Z72.0 - Tobacco use Status: Chronic - Assessment and Plan Plan: NEURO: Acute encephalopathy Drug overdose with Seroquel Bipolar disorder -Altered mental status likely secondary to Seroquel overdose, urine drug screen is pending -Patient is also on baclofen, clonazepam, venlafaxine, it is unclear whether these medications are contributing -CT of the head shows evidence of previous aneurysmal clipping -Propofol for sedation and ventilator synchrony -Psych consult once patient is neurologically improved and extubated -Daily sedation vacation in 24 hours -Poison control contacted by ED RESP: Acute respiratory failure Difficult airway Acute COPD/asthma exacerbation History of COPD and asthma Tobacco abuse -PC/AC, inspiratory pressure 30 to target tidal volume 450-500 -ABG in 1 hour -Ventilator bundle -DuoNeb every 4 hours scheduled and as needed -IV Solu-Medrol 60 mg every 8 hours -SBT when appropriate CV: -Normal saline IV fluids 1 L bolus and 75 per hour -Monitor blood pressure and heart rate closely -No EKG changes to indicate cardiotoxicity GI: -N.p.o., IV famotidine -Start tube feeds in 24 hours if not improved : -Monitor renal function closely. Garcia catheter placed in ED ID: -No antibiotics. Monitor for infection, check sputum culture HEME: -Monitor CBC, coags ENDO: -Electrolyte replacement per protocol -Sliding scale insulin if needed PROPH: -Bilateral lower extremity SCDs. Lovenox/famotidine LINES: -Utilize peripheral IVs, central line if needed CC time 45 min Patient is critically ill at this time. She is encephalopathy from drug overdose. Her care is complicated by severe COPD/asthma exacerbation. Difficult to ventilate requiring multiple vent adjustments. I am unable to get more history from the as he is being evaluated for chest pain in the ED Code Status: Full Discussed Condition With: Dr. Hanna
--- NOTE | 2018-02-13 21:09 | XR ---
EXAM DATE: 02/13/2018 8:56 PM EST AGE/SEX: 52 years / Female INDICATIONS: Post intubation CLINICAL DATA: This is the patient's subsequent encounter. Patient reports that signs and symptoms h ave been present for 1 day and indicates a pain score of Nonresponsive. MEDICAL/SURGICAL HISTORY: . Aneurysm, intracranial. Asthma. Chronic obstructive pulmonary disea se. . . Aneurysm clipping COMPARISON: [facility] [place], CHEST 1V SINGLE AP, 02/13/2018. . FINDINGS: Single AP view of the chest. Endotracheal tube is in place with the tip 2.6 cm above the lo. Naso gastric tube is in place with the tip below the [id number] of the radiograph. Lungs are clear. Krystal g volumes remain low. Cardiomediastinal silhouette is again mildly prominent when compared to prior s tudies. CONCLUSION: 1. Endotracheal tube and nasogastric tube in place. 2. Lungs clear. 3. Prominent cardiomediastinal silhouette may be related to low lung volumes. Electronically signed by: Mike Purcell MD Board Certified Radiologist 02/13/2018 9:08 PM EST
[2018-02-13] MEDS: Famotidine PF Inj 20 MG/2 ML Vial IV.PUSH SCH (21:33)
[2018-02-13] MEDS: Enoxaparin Inj 40 MG/0.4 ML Syringe SQ SCH (21:33)
[2018-02-13] MEDS: Sod Chloride 0.9% Inj 1,000 ML IV.CONT SCH (21:33)
[2018-02-13] MEDS: MethylPREDNISolone Sod Succinate Inj 125 MG/2 ML Vial IV.PUSH SCH (21:34)
[2018-02-13 21:50] LABS: ABG Base Excess -1.1 mmol/L (-2-2); ABG PCO2 53 mmHg (38-42); ABG PO2 116 mmHg (61-120)
[2018-02-13] MEDS ORDERED: MethylPREDNISolone Sod Succinate Inj 125 MG/2 ML Vial IV.PUSH SCH (22:00)
[2018-02-13 22:09] LABS: ABG Base Excess -1.5 mmol/L (-2-2); ABG PCO2 28 mmHg (38-42); ABG PO2 130 mmHg (61-120)
[2018-02-13 23:04] LABS: Amphetamine Screen,Urine Neg (Neg); Bacteria,Urine Rare /hpf; Barbiturate Screen,Urine Neg (Neg); Bilirubin,Urine Negative (Negative); Cannabinoid Screen,Urine Neg (Neg); Clarity,Urine Clear (Clear); Cocaine Screen,Urine Neg (Neg); Color,Urine Yellow (Yellw/Straw); Glucose,Urine (UA) Negative (Negative); Hyaline Casts,Urine 3 /lpf (0-3); Leukocyte Esterase,Urine Negative (Negative); Mucus,Urine Few /lpf (Occasional); Nitrite,Urine Negative (Negative)
[2018-02-13 23:09] LABS: Opiate Screen,Urine Neg (Neg)
[2018-02-14] MEDS: Oral Hygiene Kit OROPHARYNG SCH ×4 (02:21→16:27)
[2018-02-14] MEDS ORDERED: Chlorhexidine Gluconate 2% 1 Pack (2 Cloths) TOPICAL PRN (04:00)
[2018-02-14] MEDS: MethylPREDNISolone Sod Succinate Inj 125 MG/2 ML Vial IV.PUSH SCH (05:42)
[2018-02-14] MEDS: Propofol 1000 mg/100 ml Inj 1,000 MG/100 ML BOTTLE IV.CONT PRN (05:43)
[2018-02-14] MEDS: Chlorhexidine Gluconate 2% 1 Pack (2 Cloths) TOPICAL SCH (05:43)
[2018-02-14 06:47] LABS: Baso % (Auto) 0.1 % (0.0-2.0); Eos % (Auto) 0.3 % (0.0-4.0); Hematocrit 40.2 % (35.0-46.0); Hemoglobin 13.7 gm/dL (11.6-15.3); Lymph # (Auto) 0.8 th/mm3 (1.0-4.8); Mean Corpuscular HGB Conc 34.1 % (32.0-36.0); Mean Corpuscular Hemoglobin 30.8 pg (27.0-34.0); Mean Corpuscular Volume 90.1 fL (80.0-100.0); Mean Platelet Volume 9.3 fL (7.0-11.0); Mono # (Auto) 0.1 th/mm3 (0.0-0.9); Neut # (Auto) 6.7 th/mm3 (1.8-7.7); Neut % (Auto) 87.6 % (16.0-70.0); Platelet Count 158 th/mm3 (150-450); Red Blood Count 4.47 mil/mm3 (4.00-5.30); Red Cell Distribution Width 14.6 % (11.6-17.2); White Blood Count 7.6 th/mm3 (4.0-11.0)
[2018-02-14 07:04] LABS: Alanine Aminotransferase 56 U/L (10-53); Albumin 3.6 g/dL (3.4-5.0); Anion Gap 8 meq/L (5-15); Aspartate Aminotransferase 50 U/L (15-37); Blood Urea Nitrogen 7 mg/dL (7-18); Carbon Dioxide 24.2 meq/L (21.0-32.0); Chloride 109 meq/L (98-107); Glomerular Filtration Rate 73 mL/min (>89); Glucose,Random 227 mg/dL (74-106); Sodium 141 meq/L (136-145)
[2018-02-14 07:06] LABS: Alkaline Phosphatase 114 U/L (45-117); Total Protein 7.7 g/dL (6.4-8.2)
[2018-02-14] MEDS: Famotidine PF Inj 20 MG/2 ML Vial IV.PUSH SCH ×2 (08:05→21:01)
[2018-02-14] MEDS: Chlorhexidine 0.12% Oral Kit 15 ML UDC OROPHARYNG SCH ×2 (08:05→21:01)
[2018-02-14] MEDS: Sod Chloride 0.9% Inj 1,000 ML IV.CONT SCH (08:07)
[2018-02-14] MEDS: Dexmedetomidine Inj 200 MCG in Sodium Chlor 0.9% Inj 48 ML IV.CONT PRN ×2 (08:56→17:25)
--- NOTE | 2018-02-14 09:59 | P.PNCC ---
Subjective Subjective Remarks/Hospital Course: The patient is a 52 year old female with past medical history significant for tobacco abuse, bronchial asthma, COPD, morbid obesity, obstructive sleep apnea, bipolar disorder who presented to the [facility] emergency department with reported history of taking 5-7 tablets of Seroquel 300 mg, approximately 45 minutes prior to arrival. The patient was drowsy on arrival and unable to provide any history, but was waking up to questions. 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 Her condition deteriorated in the ED and she was no longer protecting airway. Patient was intubated and placed on mechanical ventilation by Dr. Hanna in the ED. Apparently the airway was anterior and intubation was difficult. A urine drug screen is pending at this time. I evaluate the patient in the emergency department. She received etomidate and succinylcholine for intubation and sedated with propofol at this time. Respiratory therapist informed me that with volume control ventilation tidal volume was inadequate, and there was expiratory wheezing. On my exam patient's tidal volumes were 150-200 on PRVC/AC with target tidal volume 500. Vent mode changed to pressure control with inspiratory pressure 30, a volume of 450-500 was obtained. It appears that patient has acute COPD/asthma exacerbation. I have ordered stat breathing treatments then scheduled DuoNeb every 4hours and as needed. Also start IV Solu-Medrol 60 mg IV every 8 hours, sputum cultures will be sent. Postintubation chest x-ray is pending at this time Subjective 02/14: Arousable on the ventilator but not following commands. Moves all 4 extremities spontaneously. Pupils are dilated and minimally reactive. CT brain showed stable aneurysmal clippings left [place] of [place] Objective Vital Signs / I&O: Vital Signs 02/13/18 19:33 02/13/18 20:40 02/13/18 20:50 Temperature 98.7 F Pulse Rate 108 H 85 79 Respiratory Rate 15 18 16 Blood Pressure 127/70 Pulse Oximetry 94 L 100 02/13/18 21:00 02/13/18 22:00 02/13/18 22:40 Temperature Pulse Rate 82 84 Respiratory Rate 16 16 Blood Pressure 115/62 134/72 Pulse Oximetry 100 100 02/13/18 22:50 02/13/18 22:53 02/13/18 22:58 Temperature Pulse Rate 111 H 81 Respiratory Rate 16 33 H 18 Blood Pressure 143/91 H Pulse Oximetry 98 99 02/13/18 23:00 02/14/18 00:00 02/14/18 00:38 Temperature Pulse Rate 80 71 72 Respiratory Rate 17 16 16 Blood Pressure 145/92 H 110/69 Pulse Oximetry 100 100 100 02/14/18 01:00 02/14/18 02:00 02/14/18 03:00 Temperature Pulse Rate 71 71 68 Respiratory Rate 84 H 143 H 16 Blood Pressure 119/72 122/73 124/78 Pulse Oximetry 99 99 100 02/14/18 03:49 02/14/18 04:00 02/14/18 05:00 Temperature Pulse Rate 69 68 85 Respiratory Rate 16 16 16 Blood Pressure 126/77 161/91 H Pulse Oximetry 100 99 100 02/14/18 06:00 02/14/18 07:46 02/14/18 08:36 Temperature Pulse Rate 75 85 Respiratory Rate 16 16 18 Blood Pressure 135/74 Pulse Oximetry 98 99 Intake & Output 02/13/18 02/14/18 02/14/18 18:59 06:59 18:59 Intake Total 100 / 100 1016 / 1016 Output Total 2150 / 2150 Balance -2049 / -2049 1016 / 1016 Weight 91 kg Intake: IV 100 / 100 1016 / 1016 Diprivan 1000 mg/100 ml Inj 1, 100 / 100 20 / 20 000 mg In 100 ml @ 5 MCG/KG/MIN 2.722 mls/hr IV.CONT TITRATE PRN Rx#:[id number] NS Inj 1,000 ML @ 75 mls/hr IV. 996 / 996 CONT .[id number] [facility] Rx#:[id number] Output: Urine Amount (Catheter) 2149 Indwelling Urethral Catheter 2149 Other: Weight On Admission 93 kg Result Diagrams: 02/14/18 05:17 02/14/18 05:17 Imaging: Chest X-Ray 02/13/18 19:30 CONCLUSION: Low lung volumes. Relative widening of the mediastinal silhouette that may be somewhat due to the decreased lung volumes. No other acute cardiopulmonary disease identified. Head CT 02/13/18 19:31 CONCLUSION: 1. Aneurysm coils of the left side of the [place] of [place]. Resulting streak artifact. 2. No acute intracranial findings identified. . Chest X-Ray 02/13/18 20:20 CONCLUSION: 1. Endotracheal tube and nasogastric tube in place. 2. Lungs clear. 3. Prominent cardiomediastinal silhouette may be related to low lung volumes. Objective Remarks: GENERAL: 52-year-old female currently orotracheally intubated SKIN: Warm and dry. HEAD: Atraumatic. Normocephalic. EYES: Pupils equal and round about 5 mm bilaterally and sluggish. No scleral icterus. No injection or drainage. ENT: No nasal bleeding or discharge. Mucous membranes pink and moist. NECK: Trachea midline. No JVD. CARDIOVASCULAR: Regular rate and rhythm. RESPIRATORY: No accessory muscle use. Clear to auscultation. Breath sounds equal bilaterally. GASTROINTESTINAL: Abdomen soft, non-tender, nondistended. Hepatic and splenic margins not palpable. MUSCULOSKELETAL: Extremities without clubbing, cyanosis, or edema. No obvious deformities. NEUROLOGICAL: Cranial nerves II through XII grossly intact. Moves all 4 extremities spontaneously not following commands. Positive gag and cough. Assessment and Plan - Problem List (1) Acute encephalopathy Code(s): G93.40 - Encephalopathy, unspecified Status: Acute (2) Acute respiratory failure Code(s): J96.00 - Acute respiratory failure, unspecified whether with hypoxia or hypercapnia Status: Acute (3) Drug overdose Code(s): T50.901A - Poisoning by unspecified drugs, medicaments and biological substances, accidental (unintentional), initial encounter Status: Acute (4) Acute exacerbation of COPD with asthma Code(s): J44.1 - Chronic obstructive pulmonary disease with (acute) exacerbation ; J45.901 - Unspecified asthma with (acute) exacerbation Status: Acute (5) Difficult airway for intubation Code(s): T88.4XXA - Failed or difficult intubation, initial encounter Status: Acute (6) Hyponatremia Code(s): E87.1 - Hypo-osmolality and hyponatremia Status: Acute (7) Transaminitis Code(s): R74.0 - Nonspecific elevation of levels of transaminase and lactic acid dehydrogenase [LDH] Status: Acute (8) History of COPD Code(s): Z87.09 - Personal history of other diseases of the respiratory system Status: Chronic (9) History of asthma Code(s): Z87.09 - Personal history of other diseases of the respiratory system Status: Chronic (10) Bipolar disorder Code(s): F31.9 - Bipolar disorder, unspecified Status: Chronic (11) Morbid obesity Code(s): E66.01 - Morbid (severe) obesity due to excess calories Status: Chronic (12) Tobacco abuse Code(s): Z72.0 - Tobacco use Status: Chronic - Assessment and Plan Plan: NEURO/Psych: Acute encephalopathy Drug overdose with Quetiapine Bipolar disorder Chronic benzodiazepine use Chronic baclofen use -Altered mental status likely secondary to Quetiapine overdose, she is on 300 mg at night at home. Urine drug screen revealed benzodiazepines only -Patient is also on baclofen 10 mg 3 times daily, clonazepam 1 mg 3 times daily , venlafaxine 150 mg daily, it is unclear whether these medications are contributing -CT of the head shows evidence of previous aneurysmal clipping involving the left [place] of [place] -Propofol for sedation and ventilator synchrony. Utilize dyslipidemia attempt extubate -According to , patient was taking fufc-[id number]-isloavr diarrhea medication which looked exactly like her Seroquel. Accidental -Daily sedation vacation -Poison control contacted by ED RESP: Acute respiratory failure Difficult airway Acute COPD/asthma exacerbation History of COPD and asthma Tobacco abuse History of obstructive sleep apnea -Currently on CPAP trial -ABG in 1 hour -Ventilator bundle -Albuterol/ipratropium aerosols every 4 hours with albuterol aerosols every 2 as needed dyspnea -IV methylprednisolone succinate 40 mg every 8 hours -CPAP trial 8/5 at 40%/SBT when appropriate CV: -Currently 0.9 NaCl IV fluids 1 L bolus at 75 per hour and switch to one half normal saline -Monitor blood pressure and heart rate closely -No EKG changes to indicate cardiotoxicity GI: Elevated transaminase -N.p.o., IV famotidine -Start tube feeds in 24 hours if not improved -Hepatitis panel and CPK ordered FEN/renal/: Hyperchloremia -Monitor renal function closely. Garcia catheter placed in ED removed on floor. Currently on 0.9% NaCl at 75 cc an hour. Switch to a one half normal saline ID: -No antibiotics. Monitor for infection, check sputum culture HEME: -Monitor CBC, coags ENDO: -Electrolyte replacement per protocol -Sliding scale insulin if needed MSK: Elevated BMI Weight loss encouraged PT evaluate and treat PROPH: -Bilateral lower extremity SCDs. Enoxaparin/famotidine LINES: -Utilize peripheral IVs, central line if needed Level 3 follow-up (2) Acute respiratory failure Qualifiers: Respiratory failure complication: unspecified whether with hypoxia or hypercapnia Qualified Code(s): J96.00 - Acute respiratory failure, unspecified whether with hypoxia or hypercapnia (3) Drug overdose Qualifiers: Encounter type: initial encounter Injury intent: undetermined intent Qualified Code(s): T50.904A - Poisoning by unspecified drugs, medicaments and biological substances, undetermined, initial encounter (5) Difficult airway for intubation Qualifiers: Encounter type: sequela Qualified Code(s): T88.4XXS - Failed or difficult intubation, sequela (10) Bipolar disorder Qualifiers: Active/Remission status: remission status unspecified Qualified Code(s): F31.9 - Bipolar disorder, unspecified
[2018-02-14] MEDS ORDERED: RESP: Racemic Epinephrine 2.25% 0.5 ML Neb ONE (10:04)
[2018-02-14 10:42] LABS: Albumin 3.7 g/dL (3.4-5.0)
[2018-02-14 10:43] LABS: Total Protein 7.8 g/dL (6.4-8.2)
[2018-02-14] MEDS: Artificial Tears Opth Drops 15 ML Bottle EACH EYE SCH ×2 (12:48→21:01)
[2018-02-14] MEDS: Sodium Chloride 0.45 % Inj 1,000 ML IV.CONT SCH (12:52)
[2018-02-14] MEDS: MethylPREDNISolone Sod Succinate Inj 40 MG/ML Vial IV.PUSH SCH ×2 (14:15→21:02)
[2018-02-14] MEDS: Enoxaparin Inj 40 MG/0.4 ML Syringe SQ SCH (21:01)
--- NOTE | 2018-02-14 21:11 | ECG ---
Date Performed: 02/13/2018 Time Performed: 21:30:10 PTAGE: 52 years EKG: Sinus rhythm LOW QRS VOLTAGE IN PRECORDIAL LEADS POSSIBLE RIGHT VENTRICULAR CONDUCTION DELAY MODERATE ST DEPRESSI ON ABNORMAL ECG NO PREVIOUS TRACING DOCTOR: Suresh Linares Interpretating Date/Time 02/14/2018 21:10:27
[2018-02-15] MEDS: Oral Hygiene Kit OROPHARYNG SCH ×4 (00:19→16:29)
[2018-02-15] MEDS: Sodium Chloride 0.45 % Inj 1,000 ML IV.CONT SCH ×2 (01:48→15:39)
[2018-02-15] MEDS: Chlorhexidine Gluconate 2% 1 Pack (2 Cloths) TOPICAL SCH (03:06)
[2018-02-15] MEDS: Artificial Tears Opth Drops 15 ML Bottle EACH EYE SCH ×2 (03:06→13:57)
[2018-02-15 04:48] LABS: Baso % (Auto) 0.1 % (0.0-2.0); Hematocrit 38.1 % (35.0-46.0); Lymph % (Auto) 5.4 % (9.0-44.0); Mean Corpuscular Hemoglobin 30.2 pg (27.0-34.0); Mean Corpuscular Volume 88.9 fL (80.0-100.0); Mean Platelet Volume 9.2 fL (7.0-11.0); Mono # (Auto) 0.3 th/mm3 (0.0-0.9); Mono % (Auto) 1.9 % (0.0-8.0); Neut # (Auto) 16.7 th/mm3 (1.8-7.7); Neut % (Auto) 92.6 % (16.0-70.0); Platelet Count 186 th/mm3 (150-450); Red Blood Count 4.28 mil/mm3 (4.00-5.30); Red Cell Distribution Width 14.7 % (11.6-17.2); White Blood Count 18.1 th/mm3 (4.0-11.0)
[2018-02-15 05:14] LABS: Calcium 9.1 mg/dL (8.5-10.1); Carbon Dioxide 27.4 meq/L (21.0-32.0); Magnesium 2.4 mg/dL (1.5-2.5); Phosphorus 3.9 mg/dL (2.5-4.9); Potassium 4.4 meq/L (3.5-5.1)
[2018-02-15 05:32] LABS: Creatine Kinase MB 11.4 ng/mL (0.5-3.6)
[2018-02-15] MEDS: MethylPREDNISolone Sod Succinate Inj 40 MG/ML Vial IV.PUSH SCH ×3 (05:59→21:06)
[2018-02-15] MEDS: Famotidine PF Inj 20 MG/2 ML Vial IV.PUSH SCH (09:32)
[2018-02-15] MEDS: Chlorhexidine 0.12% Oral Kit 15 ML UDC OROPHARYNG SCH ×2 (09:33→21:05)
--- NOTE | 2018-02-15 17:36 | P.PNIM ---
Subjective Interval history: Reports no active shortness of breath at this time. Currently on nasal cannula states that he she does not use oxygen at home. Did try to get up to the bedside commode. No further diarrhea. at bedside verify that patient accidentally thought her Seroquel pills were for her diarrhea therefore accidentally took too many of the medication. She verify the story and denies any suicidal attempt or suicidal ideations. Physical Exam Vital signs: Last Vital Signs Temp 98.8 F 02/15/18 04:00 Pulse 89 02/15/18 15:33 Resp 18 02/15/18 15:33 BP 94/55 L 02/15/18 09:00 Pulse Ox 98 02/15/18 09:24 Intake & Output 02/13/18 02/14/18 02/15/18 02/16/18 06:59 06:59 06:59 06:59 Intake Total 100 / 100 3217 / 3217 1015 / 1015 Output Total 2150 / 2150 3175 / 3175 Balance -2049 / -0 42 / 42 1015 / 1015 Weight 91 kg 90.5 kg Narrative: Obese pleasant white female in no acute distress with nasal cannula Cardiovascular regular rate and rhythm Few expiratory wheeze bilaterally Abdomen obese nontender positive bowel sounds Neurological examalert and oriented x4 to person place time situation moves all 4 extremities no difficulty. Urinary Catheter Management Indwelling Urethral Catheter: Cath placed during this visit: yes, but has since been removed by the nurse Insertion date: 02/13/18 Insertion time: 20:47 Removal date: 02/14/18 Removal time: 05:24 Straight: Cath placed during this visit: yes, but has since been removed by the nurse Insertion date: 02/14/18 Insertion time: 11:45 Removal date: 02/14/18 Removal time: 11:47 Results Labs CBC & Chem 7: 02/15/18 04:01 02/15/18 04:01 Labs: Microbiology 02/14/18 05:00 Sputum - Endotracheal Gram Stain - Final 02/14/18 05:00 Sputum - Endotracheal Sputum Culture - Preliminary gram negative rods 02/13/18 22:00 Catheterized Urine Urine Culture - Final No growth in 48 hours Assessment and Plan (1) Acute encephalopathy: Code(s): G93.40 - Encephalopathy, unspecified Status: Resolved (2) Acute respiratory failure: Code(s): J96.00 - Acute respiratory failure, unspecified whether with hypoxia or hypercapnia Status: Resolved (3) Drug overdose: Code(s): T50.901A - Poisoning by unspecified drugs, medicaments and biological substances , accidental (unintentional), initial encounter Status: Acute (4) Acute exacerbation of COPD with asthma: Code(s): J44.1 - Chronic obstructive pulmonary disease with (acute) exacerbation; J45.901 - Unspecified asthma with (acute) exacerbation Status: Acute (5) Difficult airway for intubation: Code(s): T88.4XXA - Failed or difficult intubation, initial encounter Status: Acute (6) Hyponatremia: Code(s): E87.1 - Hypo-osmolality and hyponatremia Status: Acute (7) Transaminitis: Code(s): R74.0 - Nonspecific elevation of levels of transaminase and lactic acid dehydrogenase [LDH] Status: Acute (8) History of COPD: Code(s): Z87.09 - Personal history of other diseases of the respiratory system Status: Chronic (9) History of asthma: Code(s): Z87.09 - Personal history of other diseases of the respiratory system Status: Chronic (10) Bipolar disorder: Code(s): F31.9 - Bipolar disorder, unspecified Status: Chronic (11) Morbid obesity: Code(s): E66.01 - Morbid (severe) obesity due to excess calories Status: Chronic (12) Tobacco abuse: Code(s): Z72.0 - Tobacco use Status: Chronic Plan 52-year-old white female with a history of bipolar disorder, COPD with asthma, morbid obesity, obstructive sleep apnea with intubated for airway protection secondary to cervical accidental overdose and now extubated and transferred to the hospitalist service. Acute toxic encephalopathy due to accidental drug overdose with Seroquel-this is resolved with patient being alert and oriented x4 Accidental drug overdose with Seroquel.-radiation monitor stable, continue supportive care per poison control. Urine drug screen only revealed benzodiazepines which she does take Klonopin at home. COPD with asthma current with mild exacerbation, continue with DuoNeb treatment , wean off IV Solu-Medrol to 40 mg IV every 8 and transition to oral in the morning. Wean off oxygen as tolerated, what fit test in the morning. History of bipolar disorderresume Effexor, cervical currently on hold follow- up with psychiatrist as outpatient. Morbid obesityweight loss counseling Leukocytosis due to stress reaction and steroids given Hyperglycemia due to steroids and will cover with sliding scale insulin DVT prophylaxis Lovenox Transfer out of intensive care unit Possible discharge home in the morning pending walk fit test and clinical progression. Progress Note: Quality VTE Deep Vein Thrombosis/Pulmonary Embolism Present on Admission: No _ (1) Acute respiratory failure Qualifiers: Respiratory failure complication: unspecified whether with hypoxia or hypercapnia Qualified Code(s): J96.00 - Acute respiratory failure, unspecified whether with hypoxia or hypercapnia (2) Drug overdose Qualifiers: Encounter type: initial encounter Injury intent: undetermined intent Qualified Code(s): T50.904A - Poisoning by unspecified drugs, medicaments and biological substances, undetermined, initial encounter (3) Difficult airway for intubation Qualifiers: Encounter type: sequela Qualified Code(s): T88.4XXS - Failed or difficult intubation, sequela (4) Bipolar disorder Qualifiers: Active/Remission status: remission status unspecified Current bipolar episode type: Current episode severity: Psychotic features: Most recent bipolar episode type: Qualified Code(s): F31.9 - Bipolar disorder, unspecified
[2018-02-15] MEDS ORDERED: Melatonin 5 MG Tablet PO PRN (17:38)
[2018-02-15] MEDS: Famotidine 20 MG Tablet PO SCH (21:05)
[2018-02-15] MEDS: Enoxaparin Inj 40 MG/0.4 ML Syringe SQ SCH (21:05)
[2018-02-16] MEDS: Oral Hygiene Kit OROPHARYNG SCH ×5 (01:53→23:29)
[2018-02-16] MEDS: Artificial Tears Opth Drops 15 ML Bottle EACH EYE SCH ×4 (01:54→20:04)
[2018-02-16] MEDS: Chlorhexidine Gluconate 2% 1 Pack (2 Cloths) TOPICAL SCH (05:24)
[2018-02-16] MEDS: MethylPREDNISolone Sod Succinate Inj 40 MG/ML Vial IV.PUSH SCH (05:50)
[2018-02-16] MEDS: Chlorhexidine 0.12% Oral Kit 15 ML UDC OROPHARYNG SCH ×2 (08:20→20:04)
[2018-02-16] MEDS: predniSONE 20 MG Tablet PO SCH ×2 (08:20→20:04)
[2018-02-16] MEDS: Famotidine 20 MG Tablet PO SCH ×2 (08:21→20:04)
[2018-02-16] MEDS: Venlafaxine XR 75 MG Capsule PO SCH (08:21)
[2018-02-16] MEDS ORDERED: Non-Formulary Drug (Venlafaxine [Effexor Xr] 150 MG) PO SCH (09:00)
[2018-02-16] MEDS ORDERED: clonazePAM 1 MG Tablet PO ONE (15:15)
--- NOTE | 2018-02-16 16:48 | P.PNIM ---
Subjective Interval history: Patient says she is feeling right. Denies any chest pain or shortness of breath. She continues on oxygen Physical Exam Vital signs: Vital Signs 02/15/18 17:00 02/15/18 18:00 02/15/18 18:01 Temperature Pulse Rate 94 H 93 H 94 H Respiratory Rate 22 25 H 20 Blood Pressure 122/74 142/74 H Pulse Oximetry 92 L 96 96 Pulse Oximetry [Resting on Room Air] Pulse Oximetry [Resting with Oxygen] 02/15/18 19:00 02/15/18 20:00 02/15/18 21:00 Temperature Pulse Rate 88 89 108 H Respiratory Rate 22 24 26 H Blood Pressure 123/73 137/70 144/76 H Pulse Oximetry 94 L 94 L 94 L Pulse Oximetry [Resting on Room Air] Pulse Oximetry [Resting with Oxygen] 02/15/18 21:12 02/15/18 21:13 02/15/18 21:14 Temperature Pulse Rate 88 Respiratory Rate 20 Blood Pressure Pulse Oximetry 98 98 Pulse Oximetry [Resting on Room Air] Pulse Oximetry [Resting with Oxygen] 02/15/18 22:00 02/16/18 00:00 02/16/18 00:27 Temperature 98.6 F Pulse Rate 85 83 76 Respiratory Rate 21 18 22 Blood Pressure 132/80 138/75 Pulse Oximetry 93 L 96 97 Pulse Oximetry [Resting on Room Air] Pulse Oximetry [Resting with Oxygen] 02/16/18 01:00 02/16/18 01:15 02/16/18 02:00 Temperature Pulse Rate 77 78 Respiratory Rate 23 25 H Blood Pressure Pulse Oximetry 90 L 96 100 Pulse Oximetry [Resting on Room Air] Pulse Oximetry [Resting with Oxygen] 02/16/18 03:00 02/16/18 04:00 02/16/18 04:02 Temperature 98.3 F Pulse Rate 78 91 H 88 Respiratory Rate 28 H 33 H 22 Blood Pressure 142/76 H Pulse Oximetry 98 97 98 Pulse Oximetry [Resting on Room Air] Pulse Oximetry [Resting with Oxygen] 02/16/18 05:00 02/16/18 06:00 02/16/18 07:00 Temperature Pulse Rate 77 80 70 Respiratory Rate 29 H 29 H 22 Blood Pressure Pulse Oximetry 96 92 L 94 L Pulse Oximetry [Resting on Room Air] Pulse Oximetry [Resting with Oxygen] 02/16/18 07:25 02/16/18 07:26 02/16/18 08:00 Temperature 98.1 F Pulse Rate 71 81 Respiratory Rate 17 25 H Blood Pressure Pulse Oximetry 96 96 Pulse Oximetry [Resting on Room Air] Pulse Oximetry [Resting with Oxygen] 02/16/18 08:01 02/16/18 08:58 02/16/18 09:00 Temperature Pulse Rate 82 81 Respiratory Rate 28 H 26 H Blood Pressure 130/78 Pulse Oximetry 90 L 97 94 L Pulse Oximetry [Resting on Room Air] 87 L Pulse Oximetry [Resting with Oxygen] 97 02/16/18 10:00 02/16/18 11:00 02/16/18 11:22 Temperature Pulse Rate 96 H 69 72 Respiratory Rate 22 22 17 Blood Pressure Pulse Oximetry 96 94 L Pulse Oximetry [Resting on Room Air] Pulse Oximetry [Resting with Oxygen] 02/16/18 12:00 02/16/18 13:00 02/16/18 14:00 Temperature 98.5 F Pulse Rate 79 66 75 Respiratory Rate 25 H 28 H 101 H Blood Pressure 143/84 H Pulse Oximetry 94 L 93 L 96 Pulse Oximetry [Resting on Room Air] Pulse Oximetry [Resting with Oxygen] 02/16/18 15:00 02/16/18 15:46 02/16/18 16:00 Temperature 98.4 F Pulse Rate 63 72 63 Respiratory Rate 25 H 17 24 Blood Pressure Pulse Oximetry 94 L 97 Pulse Oximetry [Resting on Room Air] Pulse Oximetry [Resting with Oxygen] 02/16/18 16:01 Temperature Pulse Rate 63 Respiratory Rate 22 Blood Pressure 131/70 Pulse Oximetry 98 Pulse Oximetry [Resting on Room Air] Pulse Oximetry [Resting with Oxygen] Intake & Output 02/15/18 02/16/18 02/16/18 18:59 06:59 18:59 Intake Total 1735 / 1735 1048 / 1048 Output Total 1800 / 1800 Balance -65 / -65 1048 / 1048 Weight 89.4 kg Intake: IV 1015 / 1015 288 / 288 1/2 Normal Saline Inj 1,000 ML 1015 / 1015 288 / 288 @ 75 mls/hr IV.CONT .[id number] [facility] Rx#:[id number] Oral 720 / 720 760 / 760 Output: Urine 1800 / 1800 Other: # Voids 4 4 Date of Last Bowel Movement 02/12/18 02/13/18 02/13/18 # Bowel Movements 0 0 Narrative: GENERAL: Obese female lying in bed. Appears comfortable. SKIN: Warm and dry. HEAD: Normocephalic. EYES: No scleral icterus. No injection or drainage. NECK: Supple, trachea midline. No JVD or lymphadenopathy. CARDIOVASCULAR: Regular rate and rhythm without murmurs, gallops, or rubs. RESPIRATORY: Breath sounds equal bilaterally. No accessory muscle use. Patient is on 3 L nasal cannula. GASTROINTESTINAL: Abdomen soft, non-tender, nondistended. MUSCULOSKELETAL: No cyanosis, or edema. BACK: Nontender without obvious deformity. No CVA tenderness. - Urinary Catheter Management Indwelling Urethral Catheter Cath placed during this visit: yes, but has since been removed by the nurse Reason for continuing: Decision to DC catheter Insertion date: 02/13/18 Insertion time: 20:47 Removal date: 02/14/18 Removal time: 05:24 Straight Cath placed during this visit: yes, but has since been removed by the nurse Reason for continuing: Not indwelling catheter Insertion date: 02/14/18 Insertion time: 11:45 Removal date: 02/14/18 Removal time: 11:47 Results - Labs CBC & Chem 7: 02/15/18 04:01 02/15/18 04:01 Microbiology 02/14/18 05:00 Sputum - Endotracheal Gram Stain - Final 02/14/18 05:00 Sputum - Endotracheal Sputum Culture - Preliminary Serratia marcescens Beta Strep not group A Staphylococcus aureus Assessment and Plan - Assessment (1) Acute encephalopathy Code(s): G93.40 - Encephalopathy, unspecified Status: Resolved (2) Acute respiratory failure Code(s): J96.00 - Acute respiratory failure, unspecified whether with hypoxia or hypercapnia Status: Resolved (3) Drug overdose Code(s): T50.901A - Poisoning by unspecified drugs, medicaments and biological substances, accidental (unintentional), initial encounter Status: Acute (4) Acute exacerbation of COPD with asthma Code(s): J44.1 - Chronic obstructive pulmonary disease with (acute) exacerbation ; J45.901 - Unspecified asthma with (acute) exacerbation Status: Acute (5) Difficult airway for intubation Code(s): T88.4XXA - Failed or difficult intubation, initial encounter Status: Acute (6) Hyponatremia Code(s): E87.1 - Hypo-osmolality and hyponatremia Status: Acute (7) Transaminitis Code(s): R74.0 - Nonspecific elevation of levels of transaminase and lactic acid dehydrogenase [LDH] Status: Acute (8) History of COPD Code(s): Z87.09 - Personal history of other diseases of the respiratory system Status: Chronic (9) History of asthma Code(s): Z87.09 - Personal history of other diseases of the respiratory system Status: Chronic (10) Bipolar disorder Code(s): F31.9 - Bipolar disorder, unspecified Status: Chronic (11) Morbid obesity Code(s): E66.01 - Morbid (severe) obesity due to excess calories Status: Chronic (12) Tobacco abuse Code(s): Z72.0 - Tobacco use Status: Chronic - Plan 52-year-old white female with a history of bipolar disorder, COPD with asthma, morbid obesity, obstructive sleep apnea with intubated for airway protection secondary to cervical accidental overdose and now extubated and transferred to the hospitalist service. //Acute toxic encephalopathy due to accidental drug overdose with Seroquel-this is resolved with patient being alert and oriented x4 //Accidental drug overdose with Seroquel.-tub tender stable, continue supportive care per poison control. Urine drug screen only revealed benzodiazepines which she does take Klonopin at home. = 02/16. Patient with some tachypnea and signs of withdrawal. Restarted benzodiazepine and monitor. //COPD with asthma current with mild exacerbation //Obstructive sleep apnea on CPAP at home , continue with DuoNeb treatment, wean off IV Solu-Medrol to 40 mg IV every 8 and transition to oral in the morning. Wean off oxygen as tolerated, what fit test in the morning. 02/16.= Hypoxemia. Patient requiring 3 L nasal cannula. Will order home O2 evaluation. Also patient with obstructive sleep apnea. Patient will bring in home CPAP. History of bipolar disorderresume Effexor, cervical currently on hold follow- up with psychiatrist as outpatient. -Continue to hold Seroquel. Patient is on such a low-dose at home that this will not cause withdrawal. Morbid obesityweight loss counseling Leukocytosis due to stress reaction and steroids given Hyperglycemia due to steroids and will cover with sliding scale insulin DVT prophylaxis Lovenox Discussed Condition With: Patient, nurse. Discharge Planning: Pending home oxygen evaluation Patient may need home oxygen Hopefully discharge tomorrow. (2) Acute respiratory failure Qualifiers: Respiratory failure complication: unspecified whether with hypoxia or hypercapnia Qualified Code(s): J96.00 - Acute respiratory failure, unspecified whether with hypoxia or hypercapnia (3) Drug overdose Qualifiers: Encounter type: initial encounter Injury intent: undetermined intent Qualified Code(s): T50.904A - Poisoning by unspecified drugs, medicaments and biological substances, undetermined, initial encounter (5) Difficult airway for intubation Qualifiers: Encounter type: sequela Qualified Code(s): T88.4XXS - Failed or difficult intubation, sequela (10) Bipolar disorder Qualifiers: Active/Remission status: remission status unspecified Qualified Code(s): F31.9 - Bipolar disorder, unspecified
[2018-02-16] MEDS: clonazePAM 0.5 MG Tablet PO SCH (18:01)
[2018-02-16] MEDS: Enoxaparin Inj 40 MG/0.4 ML Syringe SQ SCH (20:04)
[2018-02-17] MEDS: Oral Hygiene Kit OROPHARYNG SCH (03:32)
[2018-02-17] MEDS: Chlorhexidine Gluconate 2% 1 Pack (2 Cloths) TOPICAL SCH (03:32)
[2018-02-17] MEDS: Artificial Tears Opth Drops 15 ML Bottle EACH EYE SCH (05:09)
[2018-02-17 08:21] LABS: Baso % (Auto) 0.2 % (0.0-2.0); Eos % (Auto) 0.1 % (0.0-4.0); Hematocrit 44.4 % (35.0-46.0); Hemoglobin 14.8 gm/dL (11.6-15.3); Lymph # (Auto) 2.9 th/mm3 (1.0-4.8); Lymph % (Auto) 19.8 % (9.0-44.0); Mean Corpuscular HGB Conc 33.3 % (32.0-36.0); Mean Corpuscular Volume 90.1 fL (80.0-100.0); Mean Platelet Volume 9.1 fL (7.0-11.0); Mono # (Auto) 0.6 th/mm3 (0.0-0.9); Mono % (Auto) 4.2 % (0.0-8.0); Neut # (Auto) 11.1 th/mm3 (1.8-7.7); Neut % (Auto) 75.7 % (16.0-70.0); Platelet Count 234 th/mm3 (150-450); Red Blood Count 4.93 mil/mm3 (4.00-5.30); Red Cell Distribution Width 14.6 % (11.6-17.2); White Blood Count 14.6 th/mm3 (4.0-11.0)
[2018-02-17] MEDS: clonazePAM 0.5 MG Tablet PO SCH (08:27)
[2018-02-17] MEDS: Famotidine 20 MG Tablet PO SCH (08:28)
[2018-02-17] MEDS: Venlafaxine XR 75 MG Capsule PO SCH (08:28)
[2018-02-17] MEDS: predniSONE 20 MG Tablet PO SCH (08:28)
[2018-02-17] MEDS: Chlorhexidine 0.12% Oral Kit 15 ML UDC OROPHARYNG SCH (08:32)
[2018-02-17 08:40] LABS: Calcium 9.2 mg/dL (8.5-10.1); Carbon Dioxide 25.5 meq/L (21.0-32.0); Magnesium 2.3 mg/dL (1.5-2.5); Phosphorus 4.4 mg/dL (2.5-4.9); Potassium 3.4 meq/L (3.5-5.1); Total Protein 8.4 g/dL (6.4-8.2)
[2018-02-17 08:48] VITALS: BP 133/61; RESP 18; TEMP 97.3
[2018-02-17 09:24] VITALS: PULSE 96
[2018-02-17 10:29] VITALS: O2SAT 96
--- NOTE | 2018-02-17 10:46 | P.DS ---
DS: Providers Date of admission: 02/13/18 20:47 Primary care physician: Patient is a pleasant 52 year old female who presented to ED with AMS in setting of accidental overdose of seroquel prescribed for bipolar disorder. Patient admitted where following treatments were provided. Toxicology was positive for benzo which patient takes klonopin outpatient. EKG without acute concerning changes. Case discussed with patientt and and NO concern for suicidal ideation or intentional act to harms oneself with this medication. Mental status returned to baseline and patient clinically improving. Patient with known history of MARY GRACE and continued nocturnal CPAP. Concern initially for mild COPD exacerbation for which short course of steroids were prescribed. Patient walk test was stable and no need for home oxygen after respiratory evaluation. Patient to be discharged with plan to follow up with psychiatry outpatient Dr. Linton [phone]. Patient was due to have appointment in [place] and encouraged to follow up sooner. Consults: 02/14/18 10:18 Consult to Hospitalist Routine Consulting Provider: Edgardo Triana Reason for Consultation: [place] of care in a.m. 02/15. Admission with Seroquel overdose. Unintentional. 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 The patient was drowsy on arrival and unable to provide any history, but was waking up to questions. 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 Her condition deteriorated in the ED and she was no longer protecting airway. Patient was intubated and placed on mechanical ventilation by Dr. Hanna in the ED. Apparently the airway was anterior and intubation was difficult. A urine drug screen is pending at this time. I evaluate the patient in the emergency department. She received etomidate and succinylcholine for intubation and sedated with propofol at this time. Respiratory therapist informed me that with volume control ventilation tidal volume was inadequate, and there was expiratory wheezing. On my exam patient's tidal volumes were 150-200 on PRVC/AC with target tidal volume 500. Vent mode changed to pressure control with inspiratory pressure 30, a volume of 450-500 was obtained. It appears that patient has acute COPD/asthma exacerbation. I have ordered stat breathing treatments then scheduled DuoNeb every 4hours and as needed. Also start IV Solu-Medrol 60 mg IV every 8 hours, sputum cultures will be sent. Postintubation chest x-ray is pending at this time DS: Diagnosis Discharge Diagnosis (1) Acute encephalopathy: Status: Resolved (2) Acute respiratory failure: Status: Resolved (3) Drug overdose: Status: Acute (4) Acute exacerbation of COPD with asthma: Status: Acute (5) Difficult airway for intubation: Status: Acute (6) Hyponatremia: Status: Acute (7) Transaminitis: Status: Acute (8) History of COPD: Status: Chronic (9) History of asthma: Status: Chronic (10) Bipolar disorder: Status: Chronic (11) Morbid obesity: Status: Chronic (12) Tobacco abuse: Status: Chronic DS: Summary Patient is a pleasant 52 year old female who presented to ED with AMS in setting of accidental overdose of seroquel prescribed for bipolar disorder. Patient admitted where following treatments were provided. Toxicology was positive for benzo which patient takes klonopin outpatient. EKG without acute concerning changes. Case discussed with patientt and and NO concern for suicidal ideation or intentional act to harms oneself with this medication. Mental status returned to baseline and patient clinically improving. Patient with known history of MARY GRACE and continued nocturnal CPAP. Concern initially for mild COPD exacerbation for which short course of steroids were prescribed. Patient walk test was stable and no need for home oxygen after respiratory evaluation. Patient to be discharged with plan to follow up with psychiatry outpatient Dr. Linton [phone]. Patient was due to have appointment in mar and encouraged to follow up sooner. Time Spent with Patient Total time spent providing and/or coordinating discharge services: Quality: VTE Deep Vein Thrombosis/Pulmonary Embolism Present on Admission: No Results Labs on day of discharge: Labs from last 24 hours 02/17/18 02/17/18 07:29 07:29 WBC 14.6 H RBC 4.93 Hgb 14.8 Hct 44.4 MCV 90.1 MCH 30.0 MCHC 33.3 RDW 14.6 Plt Count 234 MPV 9.1 Neut % (Auto) 75.7 H Lymph % (Auto) 19.8 [place] % (Auto) 4.2 Eos % (Auto) 0.1 Baso % (Auto) 0.2 Neut # (Auto) 11.1 H Lymph # (Auto) 2.9 [place] # (Auto) 0.6 Eos # (Auto) 0.0 Baso # (Auto) 0.0 WBC Differential . Differential Comment Auto diff final Sodium 137 Potassium 3.4 L Chloride 103 Carbon Dioxide 25.5 Anion Gap 9 BUN 26 H Creatinine 0.90 Estimated GFR 66 L Random Glucose 118 H Calcium 9.2 Phosphorus 4.4 Magnesium 2.3 Total Bilirubin 0.6 Direct Bilirubin 0.1 Indirect Bilirubin 0.5 AST 89 H ALT 73 H Alkaline Phosphatase 113 Total Protein 8.4 H D Albumin 4.0 Impressions ITS Impressions Head CT 02/13/18 19:31 CONCLUSION: 1. 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 Resulting streak artifact. 2. No acute intracranial findings identified. . Chest X-Ray 02/13/18 20:20 CONCLUSION: 1. Endotracheal tube and nasogastric tube in place. 2. Lungs clear. 3. Prominent cardiomediastinal silhouette may be related to low lung volumes. Discharge Plan Discharge Disposition Patient Disposition: Discharge Home Discharge Order Discharge Orders: Discharge Order (Routine); Ordered 02/17/18 Ordered By: Hira Pabon Discharge Details Anticipated Discharge Date: 02/17/18 Physicians Team Primary Care Provider: UNKNOWN, Attending Provider: Hira Pabon Rxs /Orders / Referrals /Forms Prescriptions: New prednisone 20 mg Tablet 20 mg PO BID 4 Days Qty: 8 RF: 0 Continue quetiapine [Seroquel] 300 mg Tablet 300 mg PO HS RF: 0 clonazepam [Klonopin] 1 mg Tablet 1 mg PO TID RF: 0 venlafaxine [Effexor XR] 150 mg Capsule,Extended Release 24hr 150 mg PO DAILY RF: 0 baclofen 10 mg tablet 10 mg PO TID Qty: 21 RF: 0 ibuprofen 800 mg tablet 800 mg PO Q6-8H PRN (Reason: pain) Qty: 30 RF: 0 Referrals: Primary Care Physici,No [Family Provider] - See Instructions (Please follow up with a PMD within 7-14 days Please follow up outpatient psychiatry for monitoring of medication regimen Dr. Linton [phone]. Will resume home seroquel on discharge ) UNKNOWN, [Primary Care Provider] - See Instructions (please follow up with your psychiatrist outpatient for medication management [phone]) Discharge Instructions Additional Instructions: please follow up outpatient psychiatry for medication management Discharge Interventions Interventions: Discharge Planning - Case Management Last Done: 02/14/18 13:21 Status ED Status: Left Department
== END 2018-02-17 11:06 | disposition home or self-care (01) | DRG 917 ==
LOC: NEPE 19:22 → NEDA 20:47 → HIMC 22:50 → N04 02-17 02:07
PROVIDERS: ADMIT Internal Medicine; ATTEND Internal Medicine
DX: R74.0 Nonspecific elevation of levels of transaminase and lactic acid dehydrogenase [LDH]; G47.33 Obstructive sleep apnea (adult) (pediatric); E66.01 Morbid (severe) obesity due to excess calories; R73.9 Hyperglycemia, unspecified; T88.4XXA Failed or difficult intubation, initial encounter; G92 Toxic encephalopathy; T38.0X5A Adverse effect of glucocorticoids and synthetic analogues, initial encounter; X58.XXXA Exposure to other specified factors, initial encounter; E87.1 Hypo-osmolality and hyponatremia; D72.829 Elevated white blood cell count, unspecified; F31.9 Bipolar disorder, unspecified; T43.591A Poisoning by other antipsychotics and neuroleptics, accidental (unintentional), initial encounter; Z68.34 Body mass index [BMI] 34.0-34.9, adult; E87.8 Other disorders of electrolyte and fluid balance, not elsewhere classified; F17.210 Nicotine dependence, cigarettes, uncomplicated; J96.01 Acute respiratory failure with hypoxia; J44.1 Chronic obstructive pulmonary disease with (acute) exacerbation
CPT/HCPCS: 31500; 36600; 70450; 71010; 71045; 80048; 80053; 80069; 80076; 80307; 81001; 82140; 82550; 82552; 82805; 83690; 83735; 83930; 83935; 84100; 84484; 84703; 85025; 85610; 85730; 86403; 87070; 87077; 87086; 87147; 87186; 87205; 87641; 92526; 92610; 93005; 94003; 94150; 94618; 94620; 94640; 94657; 94664; 94665; 94667; 97162; 97530; 99291; G0195; J0330; J1650; J2704; J2920; J2930; J7030; J7506; J7512